=== PATIENT | male | born 1960 | race African-American/Black ===

== ENCOUNTER 2024-01-23 16:48 | Outpatient (CLI) | payer BC | END 2024-01-23 16:49 | disposition home or self-care (01) | LOC: RAD 16:48 | PROVIDERS: ATTEND Family Medicine | DX: M51.16 Intervertebral disc disorders with radiculopathy, lumbar region (principal); M47.26 Other spondylosis with radiculopathy, lumbar region | CPT/HCPCS: 72100 ==